=== PATIENT | female | born 1935 | race Caucasian/White ===

== ENCOUNTER 2016-05-25 09:06 | Day surgery (SDC) | payer MEDICARE ==
[~2016-05-25] VITALS: Ht 154.9 cm; Wt 56.7 kg
[2016-05-25] MEDS: RAMIPRIL 5 MG CAP PO SCH (09:00)
[~2016-05-25 09:06] MED LIST: ALEN35TA PO; CALC1WAF PO; CARV6.25 PO; CENTTAB PO; FISH1000 PO; FOLI1TAB2 PO; FURO40TA2 PO; GABA300C3 PO; NITR100C37 PO; OMEP20CA3 PO; PRAV40TA2 PO; RAMI10CA PO; SPIR25TA2 PO; TRAM50TA2 PO; VITA100037 PO; VITATAB11 PO
[2016-05-25] MEDS ORDERED: LR 1,000 ML IV SCH ×2 (09:45→12:00)
--- NOTE | 2016-05-25 10:00 | REP ---
KUB ABDOMEN AND PELVIS: KUB abdomen and pelvis performed. Bowel gas pattern demonstrates no evidence for obstruction. Intrarenal calculus is again seen overlying the mid left kidney, measuring about 6 mm in diameter. Surgical sutures are visualized just below this level. There are degenerative changes of the spine. IMPRESSION: Subcentimeter left intrarenal calculus. Signed by Pieter Soni MD 05/25/2016 02:33 P
[2016-05-25] MEDS ORDERED: PROPOFOL 200 MG/20 ML VIAL As Ordered ONE ×2 (10:20→10:23)
[2016-05-25] MEDS ORDERED: MIDAZOLAM INJ 2 MG/2 ML VIAL (J2250) As Ordered ONE (10:21)
--- NOTE | 2016-05-25 11:30 | RO ---
DATE OF PROCEDURE: 05/25/2016 PREPROCEDURE DIAGNOSIS: Left kidney stone. POSTPROCEDURE DIAGNOSIS: Left kidney stone. PROCEDURE: Left extracorporeal shockwave lithotripsy. SURGEON: Dr. Rainer Baer CARD MAKER: None. ANESTHESIA: Monitored anesthesia care (MAC). OPERATIVE INDICATIONS: This is a 80-year-old female who was found to have an approximately 6 mm nonobstructing left kidney stone. She was brought to the operating room today for treatment. DESCRIPTION OF PROCEDURE: The patient was brought to the operating room and MAC anesthesia was administered. Prophylactic antibiotics were infused. She was then placed in the supine position in preparation for left-sided extracorporeal shockwave lithotripsy. Shock waves were then delivered to the left-sided kidney stone ungated. There were no arrhythmias. Fluoroscopy was utilized the monitor stone position and fragmentation throughout the procedure. After 2500 shocks, the stone did appear to fragment well and the procedure was concluded. The patient was then awakened from anesthesia and transported to the recovery room in stable condition. ESTIMATED BLOOD LOS: 0 mL. COMPLICATIONS: None. SPECIMENS: None. PLAN: The patient will followup in the clinic in a few weeks with imaging prior to assess for residual stone burden. ROBERT
[2016-05-25] MEDS ORDERED: PERCOCET 5MG/325MG TAB As Ordered ONE (11:34)
[2016-05-25] MEDS: LABETALOL HCL 100 MG/20 ML VIAL IV SCH ×2 (11:45→11:53)
[2016-05-25] MEDS ORDERED: PERCOCET 5MG/325MG TAB PO PRN (12:00)
[2016-05-25] MEDS ORDERED: traMADol 50 MG TAB PO PRN (12:15)
[2016-05-25] MEDS ORDERED: hydrALAZINE INJ 20 MG/ML VIAL As Ordered ONE (12:21)
[2016-05-25] MEDS ORDERED: hydrALAZINE INJ 20 MG/ML VIAL IV SCH (12:30)
[2016-05-25] MEDS ORDERED: CARVedilol 6.25 MG TAB As Ordered ONE (13:04)
[2016-05-25] MEDS ORDERED: CARVedilol 6.25 MG TAB PO ONE (13:30)
[2016-05-25] MEDS ORDERED: CALCIUM CARBONATE 500 MG CHEW U/D PO PRN (16:15)
[2016-05-25 17:50] VITALS: BP 144/69
[2016-05-25 18:20] VITALS: BP 138/65
[2016-05-25 19:09] VITALS: BP 140/68
[2016-05-25 20:00] VITALS: BP 157/67
[2016-05-25] MEDS: CARVedilol 6.25 MG TAB PO SCH (20:46)
[2016-05-25] MEDS: OMEPRAZOLE 20 MG CAP PO SCH (20:46)
[2016-05-25] MEDS: SPIRONOLACTONE 25 MG TAB PO SCH (20:47)
[2016-05-25] MEDS: GABAPENTIN 300 MG CAP PO SCH (20:47)
[2016-05-25] MEDS: traMADol 50 MG TAB PO PRN (20:47)
[2016-05-25] MEDS ORDERED: TAMSULOSIN 0.4 MG CAP PO SCH (21:00)
[2016-05-25] MEDS ORDERED: PRAVASTATIN 20 MG TAB PO SCH (21:00)
[2016-05-25 23:50] VITALS: BP 155/67
[2016-05-26 04:30] VITALS: BP 159/70
[2016-05-26 08:00] VITALS: BP 130/63
--- NOTE | 2016-05-26 08:33 | IPNPDOC ---
Assessment/Plan Date Seen The patient was seen on 05/26/16. Patient Summary 80 y/o F POD1 s/p left ESWL. Doing well this am. Her blood pressure and HR have been stable in normal ranges o/n. Plan/VTE VTE Prophylaxis Ordered?: Yes VTE Exclusion Mechanical Proph: N/A:VTE Prophy Ordered Plan - plan for discharge home this morning - can resume all home medications except aspirin, which she needs to hold for 2 weeks - will have her f/u w/ me in the office in a few weeks Subjective Review oF Systems Chief Complaint Left Kidney Stone Events since Last Encounter The patient was kept o/n due to blood pressure issues postop. She feels well this morning. She notes mild left flank discomfort. No voiding difficulty. Does not have any hematuria. Objective Physical Examination General Exam: : Alert: Cooperative: No Acute Distress ENT EXAM: : Atraumatic ABDOMEN EXAM: : SoftNo: BS Hypoactive, Tenderness Neuro Exam: : Normal Speech Psych Exam: : Mental status NL: Mood NL Vital Signs/I&O Vital Signs Date Time Temp Pulse Resp B/P Pulse Ox O2 Delivery O2 Flow Rate FiO2 05/26/16 04:30 96.1 55 18 159/70 97 Room Air 05/25/16 13:00 2 I&O- Last 24 Hours up to 6 AM 05/26/16 06:00 Intake Total 2020 ml Output Total 1700 ml Balance 320 ml EDYTA URIOSTEGUI MD May 26, 2016 08:33
[2016-05-26 09:00] VITALS: BP 130/63
[2016-05-26] MEDS: GABAPENTIN 300 MG CAP PO SCH (09:00)
[2016-05-26] MEDS: RAMIPRIL 5 MG CAP PO SCH (09:00)
[2016-05-26] MEDS ORDERED: FUROSEMIDE 40 MG TAB PO SCH (09:00)
[2016-05-26] MEDS ORDERED: VITAMIN B COMPLEX/VIT C CAP PO SCH (09:00)
[2016-05-26] MEDS: SPIRONOLACTONE 25 MG TAB PO SCH (09:00)
[2016-05-26] MEDS: OMEPRAZOLE 20 MG CAP PO SCH (09:00)
[2016-05-26] MEDS: CARVedilol 6.25 MG TAB PO SCH (09:00)
[2016-05-26] MEDS: traMADol 50 MG TAB PO PRN (10:28)
== END 2016-05-26 10:33 | disposition home or self-care (01) ==
LOC: M SDC 09:06 → M PCU 17:25 → M SDC 05-26 10:33
PROVIDERS: ATTEND Urology
DX: N20.0 Calculus of kidney (principal); N39.0 Urinary tract infection, site not specified; I65.29 Occlusion and stenosis of unspecified carotid artery; K57.30 Diverticulosis of large intestine without perforation or abscess without bleeding; E78.5 Hyperlipidemia, unspecified; I10 Essential (primary) hypertension; M06.9 Rheumatoid arthritis, unspecified; T88.59XD Other complications of anesthesia, subsequent encounter; R01.1 Cardiac murmur, unspecified; R60.0 Localized edema; K44.9 Diaphragmatic hernia without obstruction or gangrene; D64.9 Anemia, unspecified; G89.29 Other chronic pain; M25.551 Pain in right hip; M25.552 Pain in left hip; M54.2 Cervicalgia; Z79.899 Other long term (current) drug therapy; Z96.612 Presence of left artificial shoulder joint; Z96.651 Presence of right artificial knee joint; Z90.710 Acquired absence of both cervix and uterus; Z86.69 Personal history of other diseases of the nervous system and sense organs; Z91.040 Latex allergy status; Z91.048 Other nonmedicinal substance allergy status; Z86.718 Personal history of other venous thrombosis and embolism; Z86.73 Personal history of transient ischemic attack (TIA), and cerebral infarction without residual deficits; Z87.81 Personal history of (healed) traumatic fracture; Z87.891 Personal history of nicotine dependence
CPT/HCPCS: 50590; 74000; J0690; J2250

== ENCOUNTER → 2016-06-19 | Outpatient (CLI) | payer MEDICARE ==
--- NOTE | 2016-06-19 10:24 | REP ---
KUB, ONE VIEW: HISTORY: Kidney stone. COMPARISON: 05/25/2016. Air is present in small and large intestine. There are no air fluid levels or dilated loops of intestine. There is no pneumoperitoneum. A 6 mm calcification is present overlying the left kidney consistent with nephrolithiasis. IMPRESSION: 1. Nonspecific bowel gas pattern. 2. Left nephrolithiasis. Signed by Vahid Polk MD 06/19/2016 10:45 A
== END ==
LOC: M SMT 09:35
PROVIDERS: ATTEND Urology
DX: N20.0 Calculus of kidney (principal)